=== PATIENT | female | born 1955 | race Caucasian/White ===

== ENCOUNTER 2020-07-05 07:54 | Day surgery (SDC) | payer OTHER ==
[~2020-07-05] VITALS: Ht 162.6 cm; Wt 83.0 kg
[~2020-07-05 07:54] MED LIST: ACYC400 PO; ATEN25; CARV3.125 PO; CYCL10 PO; Diovan Hct 80-1 EACH PO; EZET10; FURO20 PO; HYDACE5 PO; HYDCHL12.5; K-TAB ER8 MEQ PO; LOSARTAN POTAS100 M1 PO; NAPR550 PO; Synthroid88 MCG PO; [UNRECOGNIZED DRUG - REMARK]
== END 2020-07-05 10:00 | disposition home or self-care (01) ==
LOC: ORSCSDS 07:54
PROVIDERS: Internal Medicine Gastroenterology
PROC: 0DBL8ZX Excision of Transverse Colon, Via Natural or Artificial Opening Endoscopic, Diagnostic (ICD-10-PCS; principal; 2020-07-05 09:15)
DX: Z12.11 Encounter for screening for malignant neoplasm of colon (principal); Z86.010 Personal history of colon polyps; D12.3 Benign neoplasm of transverse colon; K57.30 Diverticulosis of large intestine without perforation or abscess without bleeding; K64.8 Other hemorrhoids; I10 Essential (primary) hypertension; Z79.899 Other long term (current) drug therapy
CPT/HCPCS: 88305; J0330; J0461; J2405; J2704; J7120

== ENCOUNTER 2024-06-02 09:55 | Day surgery (SDC) | payer OTHER ==
[~2024-06-02] VITALS: Ht 160 cm; Wt 84.2 kg
[~2024-06-02 09:55] MED LIST changes: +Lactated Ringer's 1,000 ML IV ONE; +propofoL 50 ML IV ONE
[2024-06-02] MEDS ORDERED: LEVOTHYROXINE100 M10 (10:32)
[2024-06-02] MEDS ORDERED: Lactated Ringer's 1,000 ML IV ONE (11:01)
[2024-06-02 12:53] VITALS: BP 110/67
== END 2024-06-02 12:37 | disposition home or self-care (01) ==
LOC: ORSCSDS 09:55
PROVIDERS: Internal Medicine Gastroenterology
PROC: 0DBL8ZX Excision of Transverse Colon, Via Natural or Artificial Opening Endoscopic, Diagnostic (ICD-10-PCS; principal; 2024-06-02 11:15)
DX: Z12.11 Encounter for screening for malignant neoplasm of colon (principal); Z86.0101 Personal history of adenomatous and serrated colon polyps; D12.3 Benign neoplasm of transverse colon; K57.30 Diverticulosis of large intestine without perforation or abscess without bleeding; Z85.42 Personal history of malignant neoplasm of other parts of uterus; I10 Essential (primary) hypertension; Z87.891 Personal history of nicotine dependence; Z79.899 Other long term (current) drug therapy
CPT/HCPCS: 88305; J2704; J7120